=== PATIENT | male | born 1945 | race Caucasian/White ===

== ENCOUNTER 2020-06-08 10:27 | Emergency (ER) | payer OTHER ==
[~2020-06-08] VITALS: Ht 170.2 cm; Wt 90.7 kg
[~2020-06-08 10:27] MED LIST: ADVAIR 100-501 EACH; ASPIRIN EC81 M1; BRILINTA90 MG PO; CARVEDILOL3.125 MG PO; COZAAR 25 MG TA25 M1 PO; LEVAQUIN 500 M500 M2 PO; LIPITOR 40 MG T40 M1 PO; NITROGLYCERIN0.4 MG SL; OSELB75 PO; PLAVIX 75 MG TA75 M1 PO; PREDNISONE 10 M10 MG PO; PRINIVIL10 MG PO; PROTONIX40 M1 PO; QVAR8.7 G1 IH; SIMVASTATIN20 MG
[2020-06-08 10:47] VITALS: BP 142/68
[2020-06-08] MEDS ORDERED: CRESTOR40 MG PO (10:58)
[2020-06-08] MEDS ORDERED: TESSALON PERLE100 M1 PO (10:59)
== END 2020-06-08 11:21 | disposition home or self-care (01) ==
LOC: M.ERS 10:27
DX: R05 Cough (principal); R06.02 Shortness of breath; U07.1 COVID-19; E78.00 Pure hypercholesterolemia, unspecified; J45.909 Unspecified asthma, uncomplicated; Z98.890 Other specified postprocedural states; Z79.899 Other long term (current) drug therapy; Z88.6 Allergy status to analgesic agent

== ENCOUNTER 2020-06-09 19:00 | Inpatient (IN) | payer OTHER ==
[~2020-06-09] VITALS: Ht 170.2 cm; Wt 90.7 kg
[2020-06-09 19:00] VITALS: BP 143/70
[~2020-06-09 19:00] MED LIST changes: +CRESTOR40 MG PO; +TESSALON PERLE100 M1 PO
[2020-06-09 20:32] LABS: URINE BILIRUBIN NEGATIVE (Negative); URINE BLOOD 2+ (Negative); URINE CLARITY CLEAR; URINE COLOR YELLOW; URINE GLUCOSE-RANDOM 1+ (Negative); URINE KETONES NEGATIVE (Negative); URINE LEUKOCYTES-REFLEX NEGATIVE (Negative); URINE NITRITE-REFLEX NEGATIVE (Negative); URINE PROTEIN 1+ (Negative); URINE SPECIFIC GRAVITY 1.025 (1.005-1.030); URINE UROBILINOGEN 0.2 E.U./dl (0.2-1.0)
[2020-06-09 20:39] LABS: ABSOLUTE BASOPHILS 0.1 thou/uL (0.0-0.2); ABSOLUTE LYMPHOCYTES 0.7 thou/uL (0.8-5.3); ABSOLUTE NEUTROPHILS 8.8 thou/uL (1.6-8.1); BASOPHILS 0.5 %; EOSINOPHILS 0.3 %; HEMATOCRIT 42.8 % (42.0-52.0); HEMOGLOBIN 14.2 gm/dL (14.0-18.0); LYMPHOCYTES 6.2 %; MCH 28.4 pg (26.0-34.0); MCHC 33.2 g/dL (28.0-37.0); MCV 85.4 fL (80.0-100.0); MONOCYTES 9.6 %; MPV 8.7 fl. (7.2-11.1); NUCLEATED RBCS 0 /100WBC; PLATELET COUNT* 178 thou/uL (150-400); POLYS 83.4 %; RBC 5.02 mil/uL (4.50-6.00); RDW-CV 14.3 % (10.5-14.5); WBC 10.5 thou/uL (4.0-11.0)
[2020-06-09 20:47] LABS: INR 1.1; PROTIME 11.1 Seconds (9.20-11.50)
[2020-06-09 21:04] LABS: CASTS None Seen /LPF (None Seen); SQUAMOUS 0-3 Few /LPF (0-3)
[2020-06-09 21:05] LABS: BACTERIA-REFLEX None Seen /HPF (None Seen); CRYSTALS None Seen /LPF (None Seen); URINE RBC 0-2 Rare /HPF (0-2); URINE WBC-REFLEX 0-5 Rare /HPF (0-5)
[2020-06-09 21:08] LABS: INFLUENZA A ANTIGEN Negative (Negative); INFLUENZA B ANTIGEN Negative (Negative)
[2020-06-09 21:17] LABS: ALBUMIN 2.9 g/dL (3.4-5.0); CREATININE 1.7 mg/dL (0.6-1.3); POTASSIUM 4.6 mmol/L (3.5-5.1); TOTAL BILIRUBIN 0.6 mg/dL (<0.1-1.0); TOTAL PROTEIN 6.6 g/dL (6.4-8.2)
[2020-06-09 21:22] LABS: CALCIUM 8.5 mg/dL (8.5-10.1)
[2020-06-09 22:13] VITALS: BP 135/70
[2020-06-10 00:15] VITALS: BP 106/69
[2020-06-10] MEDS ORDERED: ZETIA10 MG PO (02:49)
[2020-06-10] MEDS ORDERED: CARVEDILOL12.5 MG PO (02:51)
[2020-06-10] MEDS ORDERED: CHILDREN'S ASPI81 M1 PO (02:52)
[2020-06-10] MEDS ORDERED: VITAMIN D3 COM1 EACH PO (02:53)
[2020-06-10] MEDS ORDERED: PROVENTIL HFA6.7 G1 INH (03:01)
[2020-06-10 04:00] VITALS: BP 103/52
[2020-06-10 08:10] VITALS: BP 112/62
--- NOTE | 2020-06-10 13:03 | CON ---
[facility] [address] [place] [address] CONSULTATION Name: CHARLY DURAN Room: [address] IN .R.#: [id number] Admission: 06/09/20 Attend Phys: Shilo Martinez Discharge: Date of : 41 Report #: [id number] THIS REPORT FOR: //name// cc: Alisson Lagos Maggie M. DO ~ THIS REPORT FOR: //name// CC: Alisson Estevez DATE OF SERVICE: 06/10/2020 CARDIOLOGY CONSULTATION HISTORY OF PRESENT ILLNESS: The patient is a 75-year-old male who has had cough and shortness of breath since Friday of this past week. He sought assistance. He underwent a COVID testing with rapid response, which was positive. He continued to have shortness of breath, cough and re-presented on to the ER. Subsequent COVID test was negative with a longer duration clarifying test still pending. He denied any chest, neck, jaw, or arm discomfort to suggest angina. There is a history of prior myocardial infarction on 2 occasions requiring percutaneous coronary intervention once here and once at [facility]. He denies any symptoms similar to his prior ischemic pain associated with the shortness of breath and cough that precipitated this admission. Since the evaluation for the shortness of breath and cough, the patient has been on antibiotics and steroids. He is feeling much more comfortable at present and the cough has diminished. PAST MEDICAL HISTORY: Remarkable for hypercholesterolemia; asthma; coronary artery disease, status post percutaneous coronary intervention on 2 occasions. MEDICATIONS: Have included losartan, beclomethasone, prednisone, rosuvastatin. Since admission, he has been on antibiotic therapy. ALLERGIES: HE DESCRIBES TO HYDROCODONE. SOCIAL HISTORY: Denies recent cigarette use. REVIEW OF SYSTEMS: Remarkable for the following: CONSTITUTIONAL: He notes some fatigue and weakness. PULMONARY: He notes a cough and shortness of breath. CARDIAC: He denies any chest pain [place] [address] CONSULTATION Name: CHARLY DURAN Room: [address]#: [id number] Admission: 06/09/20 Attend Phys: Shilo Martinez Discharge: Date of : 41 Report #: [id number]. PHYSICAL EXAMINATION: GENERAL: Demonstrates not acutely distressed elderly male. VITAL SIGNS: Blood pressure is 130/70, pulse rate is 84, respirations are 18 per minute. NECK: Jugular venous pressure is normal. CHEST: Clear. CARDIAC: Reveals normal first and second heart sounds without murmurs or gallops. ABDOMEN: Soft and nontender. EXTREMITIES: Without edema with intact peripheral pulses. Chest x-ray reveals normal heart size. Question of minimal atelectasis at the bases. LABORATORY DATA: Hemoglobin 14.2, white blood cell count 10,500 with 178,000 platelets. Sodium 135, potassium 4.6, BUN 41, creatinine 1.7. CK 3526. Troponin I 0.07 and 0.10. Triglycerides 93, cholesterol 195, LDL 123. IMPRESSION: 1. Acute presentation with shortness of breath and cough, strongly suggesting pulmonary etiology. 2. Coronary artery disease, status post 2 prior myocardial infarctions with PCI on both occasions without recent symptoms to suggest recurrent angina. 3. Hypercholesterolemia. 4. Prerenal azotemia. RECOMMENDATIONS: 1. Agree with current directed efforts focusing on his acute presentation with cough and shortness of breath. 2. I see nothing at present to suggest myocardial ischemia associated with his recent acute presentation and would not recommend additional evaluation of the same at this juncture. Thank you for allowing us to see the patient. <ELECTRONICALLY SIGNED> By: Charly Weiss MD, FACC 06/10/20 1303 1106 [id number] Weiss MD, FACC /nt
[2020-06-10 13:38] VITALS: BP 116/56
[2020-06-10 16:00] VITALS: BP 139/70
[2020-06-10 20:00] VITALS: BP 126/63
[2020-06-11] VITALS: BP 127/66
[2020-06-11 04:00] VITALS: BP 118/60
[2020-06-11 04:14] LABS: HEMATOCRIT 40.8 % (42.0-52.0); HEMOGLOBIN 13.5 gm/dL (14.0-18.0); MCH 28.5 pg (26.0-34.0); MCV 86.6 fL (80.0-100.0); NUCLEATED RBCS 0 /100WBC; PLATELET COUNT* 212 thou/uL (150-400); RBC 4.71 mil/uL (4.50-6.00); RDW-CV 14.2 % (10.5-14.5); WBC 15.8 thou/uL (4.0-11.0)
[2020-06-11 04:25] LABS: CALCIUM 8.8 mg/dL (8.5-10.1); CREATININE 1.5 mg/dL (0.6-1.3); POTASSIUM 4.8 mmol/L (3.5-5.1)
[2020-06-11 05:44] LABS: ABSOLUTE BASOPHILS 0.2 thou/uL (0.0-0.2); ABSOLUTE LYMPHOCYTES 0.5 thou/uL (0.8-5.3); ABSOLUTE MONOCYTES 0.5 thou/uL (0.0-1.2); ABSOLUTE NEUTROPHILS 14.7 thou/uL (1.6-8.1)
[2020-06-11 05:45] LABS: PLATELET ESTIMATE ADEQUATE
[2020-06-11 08:00] VITALS: BP 117/59
--- NOTE | 2020-06-11 10:28 | EKG ---
[place] [address] ELECTROCARDIOGRAM REPORT Name: CHARLY DURAN Room: [address] ADM IN ..#: [id number] Admission: 06/09/20 Attend Phys: Enrico Estevez Discharge: Date of : 41 Date of Service: 06/09/202034 Report #: [id number] THIS REPORT FOR: //name// [facility] ED Test Date: 2020-06-09 Test Time: 20:35:00 Pat Name: CHARLY DURAN Department: Room: [facility] Gender: M [employer]: ANGELICA : 1945 Requested By: Melonie Henry Order Number: [id number] MD: Francisco Thomason Measurements Intervals [place] Rate: 88 P: 59 MO: 144 QRS: 63 QRSD: 89 T: 11 QT: 323 QTc: 391 Interpretive Statements Sinus rhythm Inferior infarct, age indeterminate Probable anterolateral infarct, old Compared to ECG 10/11/2016 01:44:28 no significant change Electronically Signed On 06-11-2020 10:28:02 CDT by Francisco Thomason [email or web address] <ELECTRONICALLY SIGNED> By: Francisco Thomason MD, FACC 06/11/20 1028 34 34 Francisco Thomason MD, [facility] /EPI
[2020-06-11 12:30] VITALS: BP 137/66
[2020-06-11 17:14] VITALS: BP 124/68
[2020-06-11 20:00] VITALS: BP 142/71
[2020-06-12] VITALS (7 sets, daily range): BP systolic 115–143; BP diastolic 61–70
[2020-06-12 06:39] LABS: ABSOLUTE BASOPHILS 0.1 thou/uL (0.0-0.2); ABSOLUTE LYMPHOCYTES 0.4 thou/uL (0.8-5.3); ABSOLUTE MONOCYTES 0.5 thou/uL (0.0-1.2); ABSOLUTE NEUTROPHILS 11.3 thou/uL (1.6-8.1); BASOPHILS 0.5 %; HEMATOCRIT 40.8 % (42.0-52.0); HEMOGLOBIN 13.6 gm/dL (14.0-18.0); LYMPHOCYTES 3.1 %; MCH 28.7 pg (26.0-34.0); MCHC 33.3 g/dL (28.0-37.0); MCV 86.2 fL (80.0-100.0); MONOCYTES 3.9 %; MPV 9.1 fl. (7.2-11.1); NUCLEATED RBCS 0 /100WBC; PLATELET COUNT* 213 thou/uL (150-400); POLYS 92.5 %; RBC 4.74 mil/uL (4.50-6.00); RDW-CV 14.6 % (10.5-14.5); WBC 12.2 thou/uL (4.0-11.0)
[2020-06-12 06:56] LABS: ALBUMIN 2.6 g/dL (3.4-5.0); CALCIUM 8.3 mg/dL (8.5-10.1); CREATININE 1.4 mg/dL (0.6-1.3); POTASSIUM 4.7 mmol/L (3.5-5.1); TOTAL BILIRUBIN 0.5 mg/dL (<0.1-1.0); TOTAL PROTEIN 6.6 g/dL (6.4-8.2)
[2020-06-13 00:29] VITALS: BP 122/70
[2020-06-13 08:00] VITALS: BP 136/66
[2020-06-13 08:08] LABS: ABSOLUTE LYMPHOCYTES 0.6 thou/uL (0.8-5.3); ABSOLUTE MONOCYTES 0.6 thou/uL (0.0-1.2); ABSOLUTE NEUTROPHILS 10.7 thou/uL (1.6-8.1); BASOPHILS 0.2 %; HEMATOCRIT 42.3 % (42.0-52.0); HEMOGLOBIN 13.8 gm/dL (14.0-18.0); LYMPHOCYTES 5.1 %; MCH 28.1 pg (26.0-34.0); MCHC 32.7 g/dL (28.0-37.0); MCV 85.9 fL (80.0-100.0); MONOCYTES 5.1 %; MPV 8.5 fl. (7.2-11.1); NUCLEATED RBCS 0 /100WBC; PLATELET COUNT* 271 thou/uL (150-400); POLYS 89.6 %; RBC 4.92 mil/uL (4.50-6.00); RDW-CV 14.6 % (10.5-14.5); WBC 11.9 thou/uL (4.0-11.0)
[2020-06-13 08:20] LABS: ALBUMIN 2.8 g/dL (3.4-5.0); CALCIUM 8.4 mg/dL (8.5-10.1); CREATININE 1.5 mg/dL (0.6-1.3); MAGNESIUM 2.7 mg/dL (1.8-2.4); POTASSIUM 4.8 mmol/L (3.5-5.1); TOTAL BILIRUBIN 0.5 mg/dL (<0.1-1.0); TOTAL PROTEIN 6.5 g/dL (6.4-8.2)
[2020-06-13 08:26] LABS: PREALBUMIN 15.9 mg/dL (18.0-35.7)
[2020-06-13 12:00] VITALS: BP 92/55
[2020-06-13 15:00] VITALS: BP 100/60
[2020-06-13 19:15] VITALS: BP 127/68
[2020-06-14 06:36] VITALS: BP 105/63
[2020-06-14 08:00] VITALS: BP 126/65
[2020-06-14 08:47] LABS: HEMATOCRIT 44.9 % (42.0-52.0); HEMOGLOBIN 14.9 gm/dL (14.0-18.0); MCH 28.5 pg (26.0-34.0); MCHC 33.2 g/dL (28.0-37.0); MCV 85.7 fL (80.0-100.0); MPV 8.2 fl. (7.2-11.1); NUCLEATED RBCS 0 /100WBC; PLATELET COUNT* 297 thou/uL (150-400); RBC 5.24 mil/uL (4.50-6.00); RDW-CV 14.6 % (10.5-14.5); WBC 14.8 thou/uL (4.0-11.0)
[2020-06-14 09:33] LABS: ABSOLUTE LYMPHOCYTES 1.6 thou/uL (0.8-5.3); ABSOLUTE MONOCYTES 0.6 thou/uL (0.0-1.2); ABSOLUTE NEUTROPHILS 12.6 thou/uL (1.6-8.1); ANISOCYTOSIS 1+; MYELOCYTES 2 %; PLATELET ESTIMATE ADEQUATE; POIKILOCYTOSIS 1+
[2020-06-14 09:42] LABS: ALBUMIN 2.8 g/dL (3.4-5.0); CALCIUM 8.5 mg/dL (8.5-10.1); CREATININE 1.5 mg/dL (0.6-1.3); POTASSIUM 4.6 mmol/L (3.5-5.1); TOTAL BILIRUBIN 0.8 mg/dL (<0.1-1.0); TOTAL PROTEIN 6.8 g/dL (6.4-8.2)
[2020-06-14 09:48] LABS: PREALBUMIN 18.4 mg/dL (18.0-35.7)
[2020-06-14 12:35] VITALS: BP 119/66
[2020-06-14 12:36] VITALS: BP 143/69
[2020-06-14 20:00] VITALS: BP 136/71
[2020-06-15 00:35] VITALS: BP 127/68
[2020-06-15 04:47] VITALS: BP 124/63
[2020-06-15 04:54] LABS: ABSOLUTE EOSINOPHILS 0.1 thou/uL (0.0-0.7); ABSOLUTE MONOCYTES 0.9 thou/uL (0.0-1.2); ABSOLUTE NEUTROPHILS 11.7 thou/uL (1.6-8.1); BASOPHILS 0.1 %; EOSINOPHILS 0.4 %; HEMATOCRIT 42.1 % (42.0-52.0); HEMOGLOBIN 13.9 gm/dL (14.0-18.0); LYMPHOCYTES 7.6 %; MCH 28.2 pg (26.0-34.0); MCV 85.5 fL (80.0-100.0); MONOCYTES 6.3 %; MPV 8.3 fl. (7.2-11.1); NUCLEATED RBCS 0 /100WBC; PLATELET COUNT* 263 thou/uL (150-400); POLYS 85.6 %; RBC 4.93 mil/uL (4.50-6.00); RDW-CV 14.3 % (10.5-14.5); WBC 13.7 thou/uL (4.0-11.0)
[2020-06-15 05:16] LABS: ALBUMIN 2.4 g/dL (3.4-5.0); CALCIUM 8.7 mg/dL (8.5-10.1); CREATININE 1.4 mg/dL (0.6-1.3); POTASSIUM 4.7 mmol/L (3.5-5.1); TOTAL BILIRUBIN 0.7 mg/dL (<0.1-1.0); TOTAL PROTEIN 5.8 g/dL (6.4-8.2)
[2020-06-15 07:50] VITALS: BP 138/66
[2020-06-15] MEDS ORDERED: PROTONIX40 M4 PO (10:05)
[2020-06-15] MEDS ORDERED: DEXAMETHASONE1 MG PO (10:05)
[2020-06-15] MEDS ORDERED: DOXYCYCLINE 10100 MG PO (10:07)
[2020-06-15 12:00] VITALS: BP 126/70
[2020-06-15 15:44] VITALS: BP 126/70
== END 2020-06-15 16:32 | disposition home or self-care (01) | DRG 177 ==
LOC: M.ERS 19:00 → M.TBA-ER 20:34 → M.2W 20:34
PROVIDERS: Emergency Medicine; Internal Medicine; Internal Medicine Critical Care Medicine; Nurse Practitioner Family; ADMIT Internal Medicine; ATTEND Internal Medicine
PROC: XW033E5 Introduction of Remdesivir Anti-infective into Peripheral Vein, Percutaneous Approach, New Technology Group 5 (ICD-10-PCS; principal; 2020-06-12)
PROC: 30233M1 Transfusion of Nonautologous Plasma Cryoprecipitate into Peripheral Vein, Percutaneous Approach (ICD-10-PCS; principal; 2020-06-12)
DX: U07.1 COVID-19 (principal); J12.89 Other viral pneumonia; J96.00 Acute respiratory failure, unspecified whether with hypoxia or hypercapnia; I21.4 Non-ST elevation (NSTEMI) myocardial infarction; R65.10 Systemic inflammatory response syndrome (SIRS) of non-infectious origin without acute organ dysfunction; N17.9 Acute kidney failure, unspecified; Z20.828 Contact with and (suspected) exposure to other viral communicable diseases; E78.00 Pure hypercholesterolemia, unspecified; J45.909 Unspecified asthma, uncomplicated; Z79.899 Other long term (current) drug therapy; Z88.5 Allergy status to narcotic agent; Z88.8 Allergy status to other drugs, medicaments and biological substances; I25.2 Old myocardial infarction; I25.10 Atherosclerotic heart disease of native coronary artery without angina pectoris